=== PATIENT | female | born 1980 | race Hispanic/Latino ===

== ENCOUNTER 2019-07-16 17:54 | Outpatient (CLI) | payer OTHER ==
[2019-07-16 18:20] LABS: BHCG - Serum POSITIVE (NEGATIVE); Pregs Control Background? CLEAR/WHITE (CLR/WHITE); Pregs Control Bar Appear? YES (CONTROL BAR)
== END 2019-07-16 17:55 | disposition home or self-care (01) ==
LOC: MADLAB 17:54
PROVIDERS: ATTEND Family Medicine
DX: Z32.00 Encounter for pregnancy test, result unknown (principal)
CPT/HCPCS: 36415; 84703